=== PATIENT | female | born 1985 | race Caucasian/White ===

== ENCOUNTER 2016-11-13 19:36 | Inpatient (IN) ==
[2016-11-13] MEDS: LACTATED RINGERS 1,000 ML IV SCH (20:21)
[2016-11-13] MEDS ORDERED: ACETAMINOPHEN 325 MG TABLET PO PRN (20:50)
[2016-11-13] MEDS ORDERED: ONDANSETRON 4 MG/2 ML VIAL IV PRN (20:50)
[2016-11-13] MEDS ORDERED: DINOPROSTONE 10 MG VAG.INSERT VAG ONE (20:50)
[2016-11-13] MEDS ORDERED: BUTORPHANOL 2 MG/ML VIAL IV PRN (20:50)
[2016-11-13] MEDS ORDERED: MEPERIDINE 50 MG/1 ML VIAL IV PRN (20:50)
[2016-11-13 21:38] LABS: Basophils % 0.2 % (0.0-0.8); Eosinophils # 0.1 10*3/uL (0.0-0.87); Eosinophils % 0.6 % (0.00-10.9); Hematocrit 33.9 VOL% (35.7-47.0); Hemoglobin 12.1 GM/DL (12.0-16.0); Immature Granulocytes % 0.3 %; Immature Granulocytes Absolute 0.03 #; Lymphocytes # 3.1 10*3/uL (1.4-4.0); Mean Corpuscular HGB Conc 35.7 GM/DL (32-36); Mean Corpuscular Hemoglobin 32 PG (27-34); Mean Corpuscular Volume 88.7 FL (87-102); Mean Platelet Volume 11.9 FL (9.6-12.0); Monocytes # 0.6 10*3/uL (0.11-0.8); Monocytes % 5.9 % (1.7-12.7); Neutrophils # 6.1 10*3/uL (1.4-7.4); Platelet Count 191 T/CUMM (130-400); Red Blood Count 3.82 MC/CUMM (3.8-5.5); Red Cell Distribution Width 14.1 % (9.3-17.3); White Blood Count 9.9 T/CUMM (4-12)
[2016-11-14] MEDS: LACTATED RINGERS 1,000 ML IV SCH ×3 (03:59→15:42)
[2016-11-14] MEDS ORDERED: OXYTOCIN/LR 20 UNIT/1,000 ML BAG IV SCH (05:00)
[2016-11-14] MEDS ORDERED: FAMOTIDINE 20 MG/2 ML VIAL IV ONE (05:09)
[2016-11-14] MEDS ORDERED: CITRIC ACID/SODIUM CITRATE 30 ML UDCUP PO ONE (05:09)
[2016-11-14] MEDS ORDERED: ePHEDrine 50 MG/ML AMP IV PRN (05:09)
[2016-11-14] MEDS: AMPICILLIN INJ 2,000 MG in SODIUM CHLORIDE 0.9% 100 ML IV SCH ×2 (05:13→15:41)
[2016-11-14] MEDS ORDERED: fentaNYL 2 MCG/ROPIV 0.2% EPID 150 ML EPIDURAL ONE (05:18)
[2016-11-14] MEDS ORDERED: fentaNYL 2 MCG/ROPIV 0.2% EPID 150 ML EPIDURAL SCH (05:34)
--- NOTE | 2016-11-14 07:59 | OB/GYN History & Physical ---
History of Present Illness Chief complaint: 31 y/o WF admitted last HS for cervical ripening with cervidil History of present illness: Ms. Bird is a 31 year old female @ 40 4/7 weeks gestation by LMP and consistent with 17 week u/s Patient was seen in the clinic yesterday with c/o occassional uterine contractions. Patient reported good movement and denied and vaginal bleeding or leakage of fluid on exam yesterday morning. Patient has been receiving care at [facility] [place] per Walter Luevano CNM starting 2015. Total of 15 visits. Past OB Hx. 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 Abnormal pap 2012 Past Medical Hx. Negative Past Surgical Hx.: Negative Family Hx. Noncontributory Social Hx. , no ETOH or illicit drug use. Hx. of tobacco use- quit with this Meds: PNVs Allergies: NKDA Labs: GBS positive Home Medications Medication Instructions Recorded Confirmed Type Multivitamin () [ 1 tablet PO DAILY 11/13/16 11/13/16 History Vitamin] Allergies Allergy/AdvReac Type Severity Reaction Status Date / Time No Known Allergies Allergy Unverified 11/13/16 20:50 12 point system: reviewed and no additional remarkable complaints except as stated Medical,Surgical,& Family Hx - Family History Family History: Reports;: Family Anesthesia Reaction (PGM - psychosis after anesthesia x2 days), Family Cancer (PGM), Family Diabetes (PGM), Family Hypertension (PGM), Family Stroke (MGF) Denies;: Family Heart Disease, Family Hematology, Family Psychiatric Problems - Social History Smoking Status: Never smoker Frequency of Alcohol Use: None Type of Drug Use: None 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: Vital Signs Temp Pulse Resp BP 11/14/16 04:00 97.5 F L 65 18 155/77 11/14/16 00:00 97.1 F L 71 18 141/81 11/13/16 20:40 98.1 F 71 20 121/78 - Antepartum / Post Antepartum Exam Antepartum / Post : IP Cervix - Dilatation: 9cm Effacement: 100 Station: 0 Rupture: SROM at 0620am Presentation: vertex Heart Rate: Category I tracing [place]: Continuous Breast: bilateral: normal Vulva: bilateral: normal Vagina: Present: normal moisture, discharge Cervix: Present: normal Adnexa: bilateral: normal Anus/Rectum: Present: normal perianal skin Assessment and Plan (1) Term Status: Acute Assessment and plan: Admitted last HS for cervical ripening with cervidil Labor augmentation with pitocin starting this am epidural for pain management anticipate Current Visit: Yes (2) Elective induction of labor planned Status: Acute Assessment and plan: Labor augmentation with pitocin starting this am epidural for pain management anticipate Current Visit: Yes Results - Labs CBC & BMP: 11/13/16 21:32
[2016-11-14] MEDS ORDERED: miSOPROStol 200 MCG TABLET ONE (08:00)
--- NOTE | 2016-11-14 12:27 | OB/GYN Progress Note ---
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 nose and mouth again suctioned, male genitalia noted, cord clamped then cut and placed on radiant warmer under the supervision of nursery staff due to heavy meconium. Placenta delivered without difficulty and intact, 3 vessel cord noted. Fundus massaged until firm EBL 250ml. 2nd degree midline vag lac repaired using 1-0 chromic. Left periurethral lac repaired using chromic 3-0. taken to nursery for further evaluation and care due to meconium aspiration. See chart for apgars and weight. 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
[2016-11-14] MEDS ORDERED: ONDANSETRON 4 MG/2 ML VIAL IV PRN (12:30)
[2016-11-14] MEDS ORDERED: ACETAMINOPHEN 325 MG TABLET PO PRN (12:30)
[2016-11-14] MEDS ORDERED: BISACODYL 10 MG SUPP RECTAL PRN (12:30)
[2016-11-14] MEDS ORDERED: MAGNESIUM HYDROXIDE SUSP 30 ML UDCUP PO PRN (12:30)
[2016-11-14 12:47] LABS: Cord Arterial Blood HCO3 17.1 MMOL/L; Cord Venous Blood HCO3 21.2 MMOL/L; Cord Venous Blood PCO2 50.2 MMHG; Cord Venous Blood PO2 21.5 MMHG
[2016-11-14] MEDS ORDERED: OXYTOCIN/LR 20 UNIT/1,000 ML BAG IV ONE (13:50)
[2016-11-14] MEDS: IBUPROFEN 800 MG TABLET PO PRN (16:55)
[2016-11-14] MEDS ORDERED: BENZOCAINE 20%/MENTHOL 0.5% SPRAY 56 GM CAN TOP PRN (17:25)
[2016-11-14] MEDS: DOCUSATE SODIUM 100 MG CAPSULE PO SCH (21:35)
[2016-11-15 06:48] LABS: Basophils % 0.2 % (0.0-0.8); Eosinophils # 0.1 10*3/uL (0.0-0.87); Eosinophils % 0.5 % (0.00-10.9); Hematocrit 35.2 VOL% (35.7-47.0); Hemoglobin 11.8 GM/DL (12.0-16.0); Immature Granulocytes % 0.4 %; Immature Granulocytes Absolute 0.04 #; Lymphocytes # 2.2 10*3/uL (1.4-4.0); Lymphocytes % 20.4 % (21.3-54.2); Mean Corpuscular HGB Conc 33.5 GM/DL (32-36); Mean Corpuscular Hemoglobin 30 PG (27-34); Mean Corpuscular Volume 90.3 FL (87-102); Mean Platelet Volume 11.9 FL (9.6-12.0); Monocytes # 0.5 10*3/uL (0.11-0.8); Monocytes % 4.8 % (1.7-12.7); Neutrophils # 8.1 10*3/uL (1.4-7.4); Neutrophils % 73.7 % (38.7-73.9); Platelet Count 193 T/CUMM (130-400); Red Cell Distribution Width 14.7 % (9.3-17.3)
--- NOTE | 2016-11-15 07:17 | Anesthesia Post-Op ---
Anesthesia Post OP - Post Ansesthetic Evaluation Patient seen in post op: Yes Resp: within normal limits CV: within normal limits Mental: within normal limits Temp: within normal limits [id number]: within normal limits Nausea and Vomiting: within normal limits Pain: within normal limits
[2016-11-15] MEDS: MULTIVITAMIN (PRENATAL) TABLET PO SCH (08:48)
[2016-11-15] MEDS: DOCUSATE SODIUM 100 MG CAPSULE PO SCH ×2 (08:48→21:30)
--- NOTE | 2016-11-15 12:24 | OB/GYN Progress Note ---
Assessment and Plan (1) Term Status: Resolved Assessment and plan: Admitted last HS for cervical ripening with cervidil Labor augmentation with pitocin starting this am epidural for pain management anticipate Current Visit: Yes (2) Elective induction of labor planned Status: Resolved Assessment and plan: Labor augmentation with pitocin starting this am epidural for pain management anticipate Current Visit: Yes (3) Normal vaginal delivery Status: Resolved Assessment and plan: Routine PP care Current Visit: Yes (4) examination following vaginal delivery Status: Acute Assessment and plan: continue with routine pp care Anticipate discharge in am Current Visit: Yes 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 Patient reports voiding without difficulty. Patient reports flatulence but denies bowel movement. Patient states she would like to oral contraceptives control O- CVS-RRR, no murmur, Lungs- CTA bilaterally Breast- soft and nipples intact bilaterally Fundus firm 2-3 fbs below umbilicus Lochia- small amount of dark red rubra Vag. Lac edges well approximated, healing well. 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
[2016-11-15] MEDS: IBUPROFEN 800 MG TABLET PO PRN ×2 (13:27→21:30)
--- NOTE | 2016-11-16 08:25 | Discharge Summary ---
Hospital Course - Hospital Course Hospital Course: 11/16/2016 @0815am S-Patient PP day 2 status post . Patient reports without difficulty, voiding with no problem. Patient reports flatulence but denies stool since delivery. Discussed contraceptive options with patient and patient states she would like to do oral contraceptives that will be started at her 6 week f/u visit. O- CVS- RRR, no murmur, Lungs- CTA bilaterally Breast soft bilaterally, nipples intact bilaterally Fundus- Firm 3fbs below umbilicus Lochia- small amount of dark red rubra Vag. Lac- Edges well approximated Extremities- + pedal pulses, no edema, negative marcelo's sign bilaterally Diagnosis - Discharge Diagnosis (1) Term Status: Resolved (2) Elective induction of labor planned Status: Resolved (3) Normal vaginal delivery Status: Resolved (4) examination following vaginal delivery Status: Resolved Specialty Discharge - Follow Up or Referrals Discharge Plan - Discharge Data Disposition: Disch To Home/Self Care Condition at Discharge: Stable Discharge Diet: regular diet Activity: resume usual activities as tolerated Hygiene: may shower Weight Bearing at Discharge: full weight bearing Driving: not until seen by doctor Contact your physician if you experience:: fever over 101, Difficulty voiding, Shortness of breath, Bleeding - Discharge Medications New Ibuprofen Tab [Motrin Tab] 800 mg PO Q8H PRN #90 tablet PRN Reason: Pain Moderate (4-7) HYDROcodone/ACETAMIN 5-325 [Murphy 5-325] 2 tablet PO Q4H PRN #30 tablet PRN Reason: Pain Moderate (4-7) Continue Multivitamin () [ Vitamin] 1 tablet PO DAILY - Follow Up or Referral Follow Up: Dawna Woodson MD [Physician] - [place] [facility] [place] - Forms/Instructions Instructions: Perineal Care (DC), Vaginal Delivery (DC), Bleeding (DC) Exam - Constitutional Vitals: Period Temp Pulse Resp BP Sys/Morgan Pulse Ox Last 24 Hr 96.7 F-97.9 F 62-71 18-20 98-134/54-84 97-99 Discharge Results Procedures and tests throughout hospitalization: Pending Orders 11/13/16 20:50 Urinalysis Routine DS: Provider Date of admission: 11/13/16 20:50 Primary care physician: . No PCP Attending physician on admission: Conor Guerra Discharging clinician: Conor Guerra
[2016-11-16] MEDS: DOCUSATE SODIUM 100 MG CAPSULE PO SCH (09:15)
[2016-11-16] MEDS: MULTIVITAMIN (PRENATAL) TABLET PO SCH (09:15)
[2016-11-16 11:43] VITALS: BP 129/84
--- NOTE | 2016-11-16 12:20 | Pathology Report from [facility] ---
[facility] ACCESSION # : [id number] PATIENT NAME : Dalia Basurto ORDERING DR : Dawna Woodson MD CLINICAL HX: IUP @ 40.4 wks, meconiuim staining POST-OP DX: Same SPECIMEN INFO: Placenta GROSS DESCRIPTION: Received in formalin labeled DALIA BASURTO is a 528 gm placenta measuring 16.0 x 18.0 x 2.5 cm. The membranes are translucent with heavy meconium staining noted. The umbilical cord measures 21.0 cm, contains three vessels and is eccentrically inserted. The surface is blue ovalle and intact. The maternal surface is hemorrhagic and intact with a few scattered areas of fibrin noted measuring 1.5 x 1.0 cm. Sections submitted A- membranes and cord, B- and maternal surfaces. DIAGNOSIS FOR DALIA BASURTO: PLACENTA, MEMBRANES, UMBILICAL CORD: Focal placental infarction with dystrophic calcification, subchorionic blood clots. Tri-vessel umbilical cord, eccentrically inserted. Membranes with focal acute and chronic inflammation and attached blood. COLLECTED DATE: 11/15/2016 [facility] REPORT DATE: 11/16/2016 ELECTRONICALLY SIGNED BY: Jacquelin Carrillo M.D. 11/16/2016 - 10:12:47 SOREN
== END 2016-11-16 10:50 | disposition home or self-care (01) | DRG 775 ==
LOC: N.LDOUT 19:36 → N.LD 19:39 → N.OB 11-14 14:18
PROVIDERS: ADMIT Nurse Practitioner; ATTEND Nurse Practitioner